=== PATIENT | female | born 1950 | race Two or more races ===

== ENCOUNTER 2023-12-14 04:33 | Day surgery (SDC) | payer OTHER ==
[2023-12-09 10:16] VITALS: BMI 30.3
[2023-12-14 08:51] LABS: BASO % 0.1 % (0-2.0); HEMATOCRIT 37.5 % (32.4-45.2); MCH 25.5 pg (25.7-33.7); MEAN CELL VOLUME 79.5 fl (80-96); MEAN PLT VOLUME 8.6 fl (7.5-11.1); MONO % 6.8 % (3.8-10.2); NEUT % 81.1 % (42.8-82.8); PLATELET COUNT 391 10^3/uL (134-434); RBC 4.72 M/mm3 (3.60-5.2); RDW 14.1 % (11.6-15.6); WHITE BLOOD COUNT 15.6 K/mm3 (4.0-10.0)
[2023-12-14 09:01] LABS: POTASSIUM 4.3 mmol/L (3.5-5.1)
[2023-12-14 09:03] LABS: CALCIUM 9.6 mg/dL (8.5-10.1)
[2023-12-14 09:04] LABS: ALBUMIN 3.8 g/dl (3.4-5.0); BLOOD UREA NITROGEN 13.8 mg/dL (7-18)
[2023-12-14 09:07] LABS: BILIRUBIN,DIRECT 0.1 mg/dL (0.0-0.2); CREATININE 0.8 mg/dL (0.55-1.3)
[2023-12-14 09:08] LABS: BILIRUBIN,TOTAL 0.4 mg/dL (0.2-1)
[2023-12-14 09:09] LABS: TOT PROT 7.8 g/dl (6.4-8.2)
[2023-12-14 09:17] LABS: INR 1.04 (0.83-1.09); PROTHROMBIN TIME (PATIENT) 12.1 SEC (9.7-13.0)
[2023-12-14] MEDS ORDERED: MIDAZOLAM HCL 2 MG/2 ML SINGLE DOSE VIAL ONE (10:08)
[2023-12-14] MEDS ORDERED: FENTANYL CITRATE/PF 50 MCG/ML VIAL ONE (10:09)
[2023-12-14] MEDS: SODIUM CHLORIDE 500 ML IV SCH (10:20)
[2023-12-14] MEDS: FENTANYL CITRATE/PF 50 MCG/ML VIAL IVPUSH ONE (10:23)
[2023-12-14] MEDS: MIDAZOLAM HCL 2 MG/2 ML SINGLE DOSE VIAL IVPUSH ONE (10:23)
[2023-12-14] MEDS: FOSAPREPITANT DIMEGLUMINE 150 MG in SODIUM CHLORIDE 145 ML IVPB ONE (12:53)
[2023-12-14] MEDS: DEXAMETHASONE SODIUM PHOSPHATE 10 MG in SODIUM CHLORIDE 50 ML IVPB ONE (13:26)
[2023-12-14] MEDS: PALONOSETRON HCL 0.25 MG/5 ML VIAL IVPUSH ONE (13:26)
[2023-12-14] MEDS: PERTUZUMAB 840 MG in SODIUM CHLORIDE 250 ML IVPB ONE (14:03)
[2023-12-14] MEDS: TRASTUZUMAB-ANNS 520 MG in SODIUM CHLORIDE 250 ML IVPB ONE (15:15)
[2023-12-14] MEDS: DOCETAXEL IV ONE (16:56)
[2023-12-14] MEDS: SODIUM CHLORIDE IV ONE (16:56)
[2023-12-14 18:15] VITALS: RESP 20; TEMP 98.8
[2023-12-14] MEDS: PORTA CATH FLUSH 10 ML IVPUSH PRN (18:15)
[2023-12-14 18:23] VITALS: BP 141/75; PULSE 75
== END 2023-12-14 18:31 | disposition home or self-care (01) ==
LOC: JRADIR 04:33 → J7W 12:00 → JRADIR 18:31
PROVIDERS: ATTEND Internal Medicine Hematology & Oncology
PROC: 3E04305 Introduction of Other Antineoplastic into Central Vein, Percutaneous Approach (ICD-10-PCS; principal; 2023-12-14)
PROC: 0JH63WZ Insertion of Totally Implantable Vascular Access Device into Chest Subcutaneous Tissue and Fascia, Percutaneous Approach (ICD-10-PCS; 2023-12-14)
DX: Z51.11 Encounter for antineoplastic chemotherapy (principal); C50.919 Malignant neoplasm of unspecified site of unspecified female breast
CPT/HCPCS: 36561; 96367; 96375; 96413; 96417; C1788; 36415; 77001-TC-FY; 80048; 80076; 84703; 85025; 85610; J1453; J2469; J9306; Q5117

== ENCOUNTER 2023-12-15 17:45 | Day surgery (SDC) | payer OTHER ==
[2023-12-15] MEDS: PEGFILGRASTIM-CBQV (UDENYCA) 6 MG/0.6 ML SYRINGE SQ ONE (17:53)
[2023-12-15 18:16] VITALS: BP 150/70; PULSE 67; RESP 20; TEMP 98
== END 2023-12-15 18:00 | disposition home or self-care (01) ==
LOC: JONCCHEMO 17:45 → J7W 17:45 → JONCCHEMO 18:00
PROVIDERS: ATTEND Internal Medicine Hematology & Oncology
PROC: 3E013GC Introduction of Other Therapeutic Substance into Subcutaneous Tissue, Percutaneous Approach (ICD-10-PCS; principal; 2023-12-15)
DX: C50.919 Malignant neoplasm of unspecified site of unspecified female breast (principal); Z76.89 Persons encountering health services in other specified circumstances
CPT/HCPCS: 96374; Q5111

== ENCOUNTER 2024-01-04 07:36 | Day surgery (SDC) | payer OTHER ==
[2024-01-04 08:26] LABS: POTASSIUM 3.7 mmol/L (3.5-5.1)
[2024-01-04 08:28] LABS: ALBUMIN 3.5 g/dl (3.4-5.0); CALCIUM 8.5 mg/dL (8.5-10.1)
[2024-01-04 08:31] LABS: BILIRUBIN,DIRECT 0.1 mg/dL (0.0-0.2); CREATININE 0.9 mg/dL (0.55-1.3)
[2024-01-04 08:33] LABS: BILIRUBIN,TOTAL 0.4 mg/dL (0.2-1); TOT PROT 7.3 g/dl (6.4-8.2)
[2024-01-04 08:36] LABS: BASO % 0.4 % (0-2.0); HEMATOCRIT 31.2 % (32.4-45.2); HEMOGLOBIN 10.3 GM/dL (10.7-15.3); LYMPH % 9.9 % (8-40); MCH 25.6 pg (25.7-33.7); MCHC 32.9 g/dl (32.0-36.0); MEAN CELL VOLUME 77.9 fl (80-96); MEAN PLT VOLUME 8.1 fl (7.5-11.1); NEUT % 84.7 % (42.8-82.8); PLATELET COUNT 566 10^3/uL (134-434); RBC 4.01 M/mm3 (3.60-5.2); WHITE BLOOD COUNT 16.1 K/mm3 (4.0-10.0)
[2024-01-04] MEDS: FOSAPREPITANT DIMEGLUMINE 150 MG in SODIUM CHLORIDE 145 ML IVPB ONE (09:58)
[2024-01-04] MEDS: PALONOSETRON HCL 0.25 MG/5 ML VIAL IVPUSH ONE (11:07)
[2024-01-04] MEDS: DEXAMETHASONE SODIUM PHOSPHATE 10 MG in SODIUM CHLORIDE 50 ML IVPB ONE (11:07)
[2024-01-04] MEDS: PERTUZUMAB 420 MG in SODIUM CHLORIDE 250 ML IVPB ONE (11:25)
[2024-01-04] MEDS: SODIUM CHLORIDE IVPB ONE (12:13)
[2024-01-04] MEDS: TRASTUZUMAB ANNS IVPB ONE (12:13)
[2024-01-04] MEDS: DOCETAXEL IV ONE (12:51)
[2024-01-04] MEDS: SODIUM CHLORIDE IV ONE (12:51)
[2024-01-04] MEDS: PORTA CATH FLUSH 10 ML IVPUSH PRN (13:52)
[2024-01-04 15:53] VITALS: BP 139/79; PULSE 74; RESP 20; TEMP 97.9
== END 2024-01-04 14:15 | disposition home or self-care (01) ==
LOC: JONCCHEMO 07:36 → J7W 07:37 → JONCCHEMO 14:15
PROVIDERS: ATTEND Internal Medicine Hematology & Oncology
PROC: 3E013GC Introduction of Other Therapeutic Substance into Subcutaneous Tissue, Percutaneous Approach (ICD-10-PCS; principal; 2024-01-04)
DX: C50.919 Malignant neoplasm of unspecified site of unspecified female breast (principal); Z76.89 Persons encountering health services in other specified circumstances
CPT/HCPCS: 36415; 80048; 80076; 85025; 96372; J1453; J2469; J9306; Q5117

== ENCOUNTER 2024-01-05 13:15 | Day surgery (SDC) | payer OTHER ==
[2024-01-05] MEDS: PEGFILGRASTIM-CBQV (UDENYCA) 6 MG/0.6 ML SYRINGE SQ ONE (13:38)
[2024-01-05 17:16] VITALS: BP 140/74; PULSE 68; RESP 20; TEMP 97.8
== END 2024-01-05 13:40 | disposition home or self-care (01) ==
LOC: JONCCHEMO 13:15 → J7W 13:15 → JONCCHEMO 13:40
PROVIDERS: ATTEND Internal Medicine Hematology & Oncology
DX: C50.412 Malignant neoplasm of upper-outer quadrant of left female breast (principal); Z17.0 Estrogen receptor positive status [ER+]; C77.3 Secondary and unspecified malignant neoplasm of axilla and upper limb lymph nodes; Z76.89 Persons encountering health services in other specified circumstances
CPT/HCPCS: 96372; Q5111

== ENCOUNTER 2024-01-25 08:08 | Day surgery (SDC) | payer OTHER ==
[2024-01-25 09:17] LABS: BASO % 0.4 % (0-2.0); HEMATOCRIT 30.3 % (32.4-45.2); HEMOGLOBIN 9.8 GM/dL (10.7-15.3); LYMPH % 9.3 % (8-40); MCH 25.4 pg (25.7-33.7); MCHC 32.3 g/dl (32.0-36.0); MEAN CELL VOLUME 78.6 fl (80-96); MEAN PLT VOLUME 8.1 fl (7.5-11.1); MONO % 3.1 % (3.8-10.2); NEUT % 87.2 % (42.8-82.8); PLATELET COUNT 390 10^3/uL (134-434); RBC 3.85 M/mm3 (3.60-5.2); RDW 15.9 % (11.6-15.6)
[2024-01-25 09:43] LABS: POTASSIUM 3.7 mmol/L (3.5-5.1)
[2024-01-25 09:47] LABS: CALCIUM 8.5 mg/dL (8.5-10.1)
[2024-01-25 09:48] LABS: ALBUMIN 3.6 g/dl (3.4-5.0); BLOOD UREA NITROGEN 12.4 mg/dL (7-18)
[2024-01-25 09:50] LABS: BILIRUBIN,DIRECT 0.1 mg/dL (0.0-0.2)
[2024-01-25 09:51] LABS: CREATININE 0.9 mg/dL (0.55-1.3)
[2024-01-25 09:52] LABS: BILIRUBIN,TOTAL 0.4 mg/dL (0.2-1)
[2024-01-25] MEDS: FOSAPREPITANT DIMEGLUMINE 150 MG in SODIUM CHLORIDE 145 ML IVPB ONE (10:11)
[2024-01-25] MEDS: PALONOSETRON HCL 0.25 MG/5 ML VIAL IVPUSH ONE (10:48)
[2024-01-25] MEDS: DEXAMETHASONE SODIUM PHOSPHATE 10 MG in SODIUM CHLORIDE 50 ML IVPB ONE (11:05)
[2024-01-25] MEDS: DOCETAXEL IV ONE (11:33)
[2024-01-25] MEDS: SODIUM CHLORIDE IV ONE (11:33)
[2024-01-25] MEDS: PERTUZUMAB 420 MG in SODIUM CHLORIDE 250 ML IVPB ONE (11:44)
[2024-01-25] MEDS: SODIUM CHLORIDE IVPB ONE (12:24)
[2024-01-25] MEDS: TRASTUZUMAB ANNS IVPB ONE (12:24)
[2024-01-25 16:11] VITALS: BP 153/79; PULSE 82; RESP 20; TEMP 98.3
[2024-01-25] MEDS ORDERED: PORTA CATH FLUSH 10 ML IVPUSH PRN (16:11)
== END 2024-01-25 14:25 | disposition home or self-care (01) ==
LOC: JONCCHEMO 08:08 → J7W 08:08 → JONCCHEMO 14:25
PROVIDERS: ATTEND Internal Medicine Hematology & Oncology
DX: Z51.11 Encounter for antineoplastic chemotherapy (principal); C50.412 Malignant neoplasm of upper-outer quadrant of left female breast; C77.3 Secondary and unspecified malignant neoplasm of axilla and upper limb lymph nodes; Z17.0 Estrogen receptor positive status [ER+]
CPT/HCPCS: 36415; 80048; 80076; 85025; 96367; 96375; 96413; 96417; J1453; J2469; J9306; Q5117

== ENCOUNTER 2024-01-26 14:00 | Day surgery (SDC) | payer OTHER ==
[2024-01-26] MEDS: PEGFILGRASTIM-CBQV (UDENYCA) 6 MG/0.6 ML SYRINGE SQ ONE (14:44)
[2024-01-26 18:56] VITALS: BP 133/68; PULSE 77; RESP 18; TEMP 97.9
== END 2024-01-26 15:00 | disposition home or self-care (01) ==
LOC: JONCCHEMO 14:00 → J7W 14:47 → JONCCHEMO 15:00
PROVIDERS: ATTEND Internal Medicine Hematology & Oncology
PROC: 3E013GC Introduction of Other Therapeutic Substance into Subcutaneous Tissue, Percutaneous Approach (ICD-10-PCS; principal; 2024-01-26)
DX: C50.412 Malignant neoplasm of upper-outer quadrant of left female breast (principal); C77.3 Secondary and unspecified malignant neoplasm of axilla and upper limb lymph nodes; Z76.89 Persons encountering health services in other specified circumstances
CPT/HCPCS: 96372; Q5111

== ENCOUNTER 2024-02-15 09:11 | Day surgery (SDC) | payer OTHER ==
[2024-02-15 09:34] LABS: BASO % 0.1 % (0-2.0); HEMATOCRIT 29.8 % (32.4-45.2); HEMOGLOBIN 9.8 GM/dL (10.7-15.3); LYMPH % 8.3 % (8-40); MCH 25.9 pg (25.7-33.7); MEAN CELL VOLUME 78.4 fl (80-96); MEAN PLT VOLUME 7.4 fl (7.5-11.1); MONO % 4.2 % (3.8-10.2); NEUT % 87.4 % (42.8-82.8); PLATELET COUNT 431 10^3/uL (134-434); RBC 3.79 M/mm3 (3.60-5.2); RDW 17.5 % (11.6-15.6); WHITE BLOOD COUNT 13.6 K/mm3 (4.0-10.0)
[2024-02-15 09:48] LABS: POTASSIUM 3.8 mmol/L (3.5-5.1)
[2024-02-15 09:51] LABS: CALCIUM 9.4 mg/dL (8.5-10.1)
[2024-02-15 09:52] LABS: ALBUMIN 3.7 g/dl (3.4-5.0); BLOOD UREA NITROGEN 15.2 mg/dL (7-18)
[2024-02-15 09:54] LABS: BILIRUBIN,DIRECT 0.1 mg/dL (0.0-0.2); CREATININE 0.8 mg/dL (0.55-1.3)
[2024-02-15 09:56] LABS: TOT PROT 7.4 g/dl (6.4-8.2)
[2024-02-15 09:57] LABS: BILIRUBIN,TOTAL 0.3 mg/dL (0.2-1)
[2024-02-15] MEDS: FOSAPREPITANT DIMEGLUMINE 150 MG in SODIUM CHLORIDE 145 ML IVPB ONE (11:06)
[2024-02-15] MEDS: PALONOSETRON HCL 0.25 MG/5 ML VIAL IVPUSH ONE (11:06)
[2024-02-15] MEDS: DEXAMETHASONE SODIUM PHOSPHATE 10 MG in SODIUM CHLORIDE 50 ML IVPB ONE (11:40)
[2024-02-15] MEDS: PERTUZUMAB 420 MG in SODIUM CHLORIDE 250 ML IVPB ONE (11:58)
[2024-02-15] MEDS: TRASTUZUMAB ANNS IVPB ONE (12:58)
[2024-02-15] MEDS: SODIUM CHLORIDE IVPB ONE (12:58)
[2024-02-15] MEDS: SODIUM CHLORIDE IV ONE (13:30)
[2024-02-15] MEDS: DOCETAXEL IV ONE (13:30)
[2024-02-15] MEDS: PORTA CATH FLUSH 10 ML IVPUSH PRN (14:40)
[2024-02-15 14:53] VITALS: PULSE 74; TEMP 98.3
[2024-02-15 15:11] VITALS: BP 152/77; RESP 20
== END 2024-02-15 15:00 | disposition home or self-care (01) ==
LOC: JONCCHEMO 09:11 → J7W 09:11 → JONCCHEMO 15:00
PROVIDERS: ATTEND Internal Medicine Hematology & Oncology
DX: Z51.11 Encounter for antineoplastic chemotherapy (principal); C50.412 Malignant neoplasm of upper-outer quadrant of left female breast; C77.3 Secondary and unspecified malignant neoplasm of axilla and upper limb lymph nodes
CPT/HCPCS: 36415; 80048; 80076; 85025; 96367; 96375; 96413; 96417; J1453; J2469; J9306; Q5117

== ENCOUNTER 2024-02-16 14:50 | Day surgery (SDC) | payer OTHER ==
[2024-02-16] MEDS: PEGFILGRASTIM-CBQV (UDENYCA) 6 MG/0.6 ML SYRINGE SQ ONE (15:08)
[2024-02-16 15:50] VITALS: BP 139/78; PULSE 78; RESP 20; TEMP 98.3
== END 2024-02-16 16:00 | disposition home or self-care (01) ==
LOC: JONCCHEMO 14:50 → J7W 14:52 → JONCCHEMO 16:22
PROVIDERS: ATTEND Internal Medicine Hematology & Oncology
PROC: 3E013GC Introduction of Other Therapeutic Substance into Subcutaneous Tissue, Percutaneous Approach (ICD-10-PCS; principal; 2024-02-16)
DX: C50.412 Malignant neoplasm of upper-outer quadrant of left female breast (principal); C77.3 Secondary and unspecified malignant neoplasm of axilla and upper limb lymph nodes; Z76.89 Persons encountering health services in other specified circumstances
CPT/HCPCS: 96372; Q5111

== ENCOUNTER 2024-03-07 08:36 | Day surgery (SDC) | payer OTHER ==
[2024-03-07 09:17] LABS: HEMATOCRIT 29.3 % (32.4-45.2); HEMOGLOBIN 9.7 GM/dL (10.7-15.3); MCH 26.8 pg (25.7-33.7); MCHC 33.2 g/dl (32.0-36.0); MEAN CELL VOLUME 80.8 fl (80-96); PLATELET COUNT 366 10^3/uL (134-434); RBC 3.62 M/mm3 (3.60-5.2); RDW 17.9 % (11.6-15.6); WHITE BLOOD COUNT 12.5 K/mm3 (4.0-10.0)
[2024-03-07 09:54] LABS: POTASSIUM 3.6 mmol/L (3.5-5.1)
[2024-03-07 09:56] LABS: CALCIUM 9.3 mg/dL (8.5-10.1)
[2024-03-07 09:57] LABS: ALBUMIN 3.9 g/dl (3.4-5.0); BLOOD UREA NITROGEN 14.6 mg/dL (7-18)
[2024-03-07 10:00] LABS: BILIRUBIN,DIRECT 0.1 mg/dL (0.0-0.2)
[2024-03-07 10:02] LABS: BILIRUBIN,TOTAL 0.4 mg/dL (0.2-1); TOT PROT 7.4 g/dl (6.4-8.2)
[2024-03-07 10:17] LABS: ANISOCYTOSIS 1+; MACROCYTOSIS 0
[2024-03-07] MEDS: FOSAPREPITANT DIMEGLUMINE 150 MG in SODIUM CHLORIDE 145 ML IVPB ONE (10:56)
[2024-03-07] MEDS: PORTA CATH FLUSH 10 ML IVPUSH PRN (11:15)
[2024-03-07] MEDS: PALONOSETRON HCL 0.25 MG/5 ML VIAL IVPUSH ONE (11:15)
[2024-03-07] MEDS: DEXAMETHASONE SODIUM PHOSPHATE 10 MG in SODIUM CHLORIDE 50 ML IVPB ONE (11:23)
[2024-03-07] MEDS: PERTUZUMAB 420 MG in SODIUM CHLORIDE 250 ML IVPB ONE (12:19)
[2024-03-07] MEDS: TRASTUZUMAB ANNS IVPB ONE (12:59)
[2024-03-07] MEDS: SODIUM CHLORIDE IVPB ONE (12:59)
[2024-03-07] MEDS: SODIUM CHLORIDE IV ONE (14:06)
[2024-03-07] MEDS: DOCETAXEL IV ONE (14:06)
[2024-03-07 15:40] VITALS: RESP 20; TEMP 98
[2024-03-08 07:07] VITALS: BP 143/70; PULSE 69
== END 2024-03-07 15:35 | disposition home or self-care (01) ==
LOC: JONCCHEMO 08:36 → J7W 08:37 → JONCCHEMO 15:35
PROVIDERS: ATTEND Internal Medicine Hematology & Oncology
DX: Z51.11 Encounter for antineoplastic chemotherapy (principal); C50.412 Malignant neoplasm of upper-outer quadrant of left female breast; C77.3 Secondary and unspecified malignant neoplasm of axilla and upper limb lymph nodes
CPT/HCPCS: 36415; 80048; 80076; 82607; 82728; 82746; 83540; 83550; 85025; J1453; J2469; J9306; Q5117

== ENCOUNTER 2024-03-08 14:28 | Day surgery (SDC) | payer OTHER ==
[2024-03-08] MEDS: PEGFILGRASTIM-CBQV (UDENYCA) 6 MG/0.6 ML SYRINGE SQ ONE (14:31)
[2024-03-08 15:11] VITALS: BP 135/70; PULSE 75; RESP 20; TEMP 98.7
== END 2024-03-08 15:00 | disposition home or self-care (01) ==
LOC: JONCCHEMO 14:28 → J7W 14:28 → JONCCHEMO 15:00
PROVIDERS: ATTEND Internal Medicine Hematology & Oncology
PROC: 3E013GC Introduction of Other Therapeutic Substance into Subcutaneous Tissue, Percutaneous Approach (ICD-10-PCS; principal; 2024-03-08)
DX: Z76.89 Persons encountering health services in other specified circumstances (principal); C50.412 Malignant neoplasm of upper-outer quadrant of left female breast; C77.3 Secondary and unspecified malignant neoplasm of axilla and upper limb lymph nodes
CPT/HCPCS: Q5111

== ENCOUNTER 2024-03-28 09:33 | Day surgery (SDC) | payer OTHER ==
[2024-03-28 09:57] VITALS: BP 146/77; PULSE 69; RESP 20; TEMP 98.2
[2024-03-28 09:57] LABS: HEMATOCRIT 30.5 % (32.4-45.2); HEMOGLOBIN 9.9 GM/dL (10.7-15.3); LYMPH % 16.7 % (8-40); MCH 26.8 pg (25.7-33.7); MCHC 32.6 g/dl (32.0-36.0); MEAN CELL VOLUME 82.4 fl (80-96); MEAN PLT VOLUME 7.7 fl (7.5-11.1); MONO % 7.3 % (3.8-10.2); PLATELET COUNT 402 10^3/uL (134-434); RDW 17.3 % (11.6-15.6)
[2024-03-28 10:20] LABS: POTASSIUM 3.9 mmol/L (3.5-5.1)
[2024-03-28 10:22] LABS: BLOOD UREA NITROGEN 15.7 mg/dL (7-18); CALCIUM 9.5 mg/dL (8.5-10.1)
[2024-03-28 10:23] LABS: ALBUMIN 4.1 g/dl (3.4-5.0)
[2024-03-28 10:26] LABS: BILIRUBIN,DIRECT 0.1 mg/dL (0.0-0.2); CREATININE 0.8 mg/dL (0.55-1.3)
[2024-03-28 10:27] LABS: BILIRUBIN,TOTAL 0.8 mg/dL (0.2-1); TOT PROT 7.2 g/dl (6.4-8.2)
[2024-03-28] MEDS: FOSAPREPITANT DIMEGLUMINE 150 MG in SODIUM CHLORIDE 145 ML IVPB ONE (11:20)
[2024-03-28] MEDS: PALONOSETRON HCL 0.25 MG/5 ML VIAL IVPUSH ONE (11:58)
[2024-03-28] MEDS: DEXAMETHASONE SODIUM PHOSPHATE 10 MG in SODIUM CHLORIDE 50 ML IVPB ONE (12:00)
[2024-03-28] MEDS: PERTUZUMAB 420 MG in SODIUM CHLORIDE 250 ML IVPB ONE (12:21)
[2024-03-28] MEDS: TRASTUZUMAB QYYP IVPB ONE (12:57)
[2024-03-28] MEDS: SODIUM CHLORIDE IVPB ONE (12:57)
[2024-03-28] MEDS: SODIUM CHLORIDE IV ONE (13:34)
[2024-03-28] MEDS: DOCETAXEL IV ONE (13:34)
[2024-03-28] MEDS: PORTA CATH FLUSH 10 ML IVPUSH PRN (13:36)
== END 2024-03-28 14:40 | disposition home or self-care (01) ==
LOC: J7W 09:33 → JONCCHEMO 09:33
PROVIDERS: ATTEND Internal Medicine Hematology & Oncology
DX: Z51.11 Encounter for antineoplastic chemotherapy (principal); C50.412 Malignant neoplasm of upper-outer quadrant of left female breast; C77.3 Secondary and unspecified malignant neoplasm of axilla and upper limb lymph nodes
CPT/HCPCS: 36415; 80048; 80076; 85025; 96367; 96375; 96413; 96417; J1453; J2469; J9306; Q5116

== ENCOUNTER 2024-03-29 12:35 | Day surgery (SDC) | payer OTHER ==
[2024-03-29] MEDS: PEGFILGRASTIM-CBQV (UDENYCA) 6 MG/0.6 ML SYRINGE SQ ONE (12:43)
[2024-03-29 15:26] VITALS: BP 151/71; PULSE 69; RESP 20; TEMP 98.1
== END 2024-03-29 13:00 | disposition home or self-care (01) ==
LOC: JONCCHEMO 12:35 → J7W 12:35 → JONCCHEMO 13:00
PROVIDERS: ATTEND Internal Medicine Hematology & Oncology
PROC: 3E013GC Introduction of Other Therapeutic Substance into Subcutaneous Tissue, Percutaneous Approach (ICD-10-PCS; principal; 2024-03-29)
DX: C50.412 Malignant neoplasm of upper-outer quadrant of left female breast (principal); C77.3 Secondary and unspecified malignant neoplasm of axilla and upper limb lymph nodes; Z76.89 Persons encountering health services in other specified circumstances
CPT/HCPCS: 96372; Q5111

== ENCOUNTER → 2024-04-20 | Day surgery (SDC) | payer OTHER | END | disposition home or self-care (01) | LOC: JRADUS-SUR 08:22 | PROVIDERS: ATTEND Surgery Surgical Oncology | PROC: BH41ZZZ Ultrasonography of Left Breast (ICD-10-PCS; principal; 2024-04-20) | DX: C50.919 Malignant neoplasm of unspecified site of unspecified female breast (principal) | CPT/HCPCS: 19285; 19286; A4648; 19281; 77065-TC ==

== ENCOUNTER 2024-04-27 04:27 | Day surgery (SDC) | payer OTHER ==
[2024-04-19 13:06] VITALS: BMI 33.0
[2024-04-27] MEDS ORDERED: ACETAMINOPHEN 325 MG TABLET (FP) ONE (10:27)
[2024-04-27] MEDS: ACETAMINOPHEN 325 MG TABLET (FP) PO ONE (10:45)
[2024-04-27] MEDS ORDERED: BUPIVACAINE HCL/PF 0.5% (5MG/ML) 10 ML VIAL ONE (11:03)
[2024-04-27] MEDS ORDERED: LIDOCAINE 1%/EPI 1:100000 (20 ML MULTI DOSE VIAL) ONE (11:03)
[2024-04-27] MEDS ORDERED: ISOSULFAN BLUE 50 MG/5 ML VIAL SQ ONE (11:03)
[2024-04-27] MEDS ORDERED: BENZOIN/ALOE VERA/STORAX/TOLU 58 ML BOTTLE ONE (11:03)
[2024-04-27] MEDS ORDERED: MIDAZOLAM HCL 2 MG/2 ML SINGLE DOSE VIAL ONE (12:46)
[2024-04-27] MEDS ORDERED: PROPOFOL 20 ML ONE (12:46)
[2024-04-27] MEDS ORDERED: LIDOCAINE HCL/PF 2% SDV 5ML VIAL ONE (12:46)
[2024-04-27] MEDS ORDERED: DEXAMETHASONE SOD PHOSPHATE 4 MG/1 ML VIAL ONE (13:00)
[2024-04-27] MEDS: ceFAZolin SODIUM 1 GM VIAL IVPB ONE (13:00)
[2024-04-27] MEDS: BUPIVACAINE HCL/PF 0.5% (5 MG/ML) 30 ML VIAL IJ ONE (13:35)
[2024-04-27] MEDS ORDERED: KETOROLAC TROMETHAMINE 30 MG/1 ML VIAL ONE (13:40)
[2024-04-27] MEDS ORDERED: ONDANSETRON 4 MG/2 ML VIAL ONE (13:40)
[2024-04-27] MEDS ORDERED: oxyCODONE HCL 5 MG TABLET PO PRN (14:08)
[2024-04-27] MEDS ORDERED: ONDANSETRON 4 MG/2 ML VIAL IVPUSH PRN (14:08)
[2024-04-27] MEDS ORDERED: LACTATED RINGERS SOLUTION 1,000 ML IV SCH (14:15)
[2024-04-27 14:46] VITALS: TEMP 97.8
[2024-04-27 16:16] VITALS: BP 143/73; PULSE 77; RESP 18
[2024-04-27] MEDS ORDERED: ACETAMINOPHEN 325 MG TABLET (FP) PO ONE (16:45)
== END 2024-04-27 16:05 | disposition home or self-care (01) ==
LOC: JASU-SURG 04:27
PROVIDERS: ATTEND Surgery Surgical Oncology
PROC: C71L1ZZ Planar Nuclear Medicine Imaging of Upper Chest Lymphatics using Technetium 99m (Tc-99m) (ICD-10-PCS; 2024-04-27)
PROC: 0HBU0ZZ Excision of Left Breast, Open Approach (ICD-10-PCS; principal; 2024-04-27 12:00)
PROC: 07B60ZX Excision of Left Axillary Lymphatic, Open Approach, Diagnostic (ICD-10-PCS; 2024-04-27 12:00)
DX: C50.912 Malignant neoplasm of unspecified site of left female breast (principal); C77.3 Secondary and unspecified malignant neoplasm of axilla and upper limb lymph nodes
CPT/HCPCS: 76098-TC-FY; 78195-TC; 88307-TC; 88342-TC; 94760; A9541

== ENCOUNTER 2024-05-23 11:05 | Day surgery (SDC) | payer OTHER ==
[2024-05-23 11:58] VITALS: RESP 20; TEMP 97.7
[2024-05-23 12:58] LABS: BASO % 0.4 % (0-2.0); EOS % 1.6 % (0-4.5); HEMATOCRIT 31.2 % (32.4-45.2); HEMOGLOBIN 10.4 GM/dL (10.7-15.3); LYMPH % 24.7 % (8-40); MCH 27.1 pg (25.7-33.7); MCHC 33.2 g/dl (32.0-36.0); MEAN CELL VOLUME 81.7 fl (80-96); MEAN PLT VOLUME 8.5 fl (7.5-11.1); MONO % 6.9 % (3.8-10.2); NEUT % 66.4 % (42.8-82.8); PLATELET COUNT 309 10^3/uL (134-434); RBC 3.82 M/mm3 (3.60-5.2); RDW 13.8 % (11.6-15.6); WHITE BLOOD COUNT 7.9 K/mm3 (4.0-10.0)
[2024-05-23 13:09] LABS: CHLORIDE 106 mmol/L (98-107); SODIUM 139 mmol/L (136-145)
[2024-05-23 13:11] LABS: ALBUMIN 3.8 g/dl (3.4-5.0); ANION GAP 7 mmol/L (4-13); BLOOD UREA NITROGEN 21.8 mg/dL (7-18); CALCIUM 9.3 mg/dL (8.5-10.1); CO2 26 mmol/L (21-32)
[2024-05-23 13:12] LABS: GLUCOSE,RANDOM 103 mg/dL (74-106)
[2024-05-23 13:13] LABS: BILIRUBIN,DIRECT 0.1 mg/dL (0.0-0.2)
[2024-05-23 13:15] LABS: BILIRUBIN,TOTAL 0.3 mg/dL (0.2-1); CREATININE 0.9 mg/dL (0.55-1.3); TOT PROT 7.1 g/dl (6.4-8.2)
[2024-05-23] MEDS: SODIUM CHLORIDE IVPB ONE (13:55)
[2024-05-23] MEDS: ADO TRASTUZUMAB EMTANSINE IVPB ONE (13:55)
[2024-05-23] MEDS: PORTA CATH FLUSH 10 ML IVPUSH PRN (14:30)
[2024-05-23 15:48] VITALS: BP 153/74; PULSE 72
== END 2024-05-23 14:45 | disposition home or self-care (01) ==
LOC: JONCCHEMO 11:05 → J7W 11:06 → JONCCHEMO 14:45
PROVIDERS: ATTEND Internal Medicine Hematology & Oncology
DX: Z51.11 Encounter for antineoplastic chemotherapy (principal); C50.412 Malignant neoplasm of upper-outer quadrant of left female breast; C77.3 Secondary and unspecified malignant neoplasm of axilla and upper limb lymph nodes; Z17.0 Estrogen receptor positive status [ER+]
CPT/HCPCS: 36415; 80048; 80076; 84703; 85025; 96413; J9354

== ENCOUNTER 2024-06-13 10:52 | Day surgery (SDC) | payer OTHER ==
[2024-06-13 11:26] LABS: BASO % 0.6 % (0-2.0); EOS % 0.7 % (0-4.5); HEMATOCRIT 34.2 % (32.4-45.2); HEMOGLOBIN 10.9 GM/dL (10.7-15.3); LYMPH % 19.4 % (8-40); MCH 25.3 pg (25.7-33.7); MCHC 31.9 g/dl (32.0-36.0); MEAN CELL VOLUME 79.3 fl (80-96); MEAN PLT VOLUME 7.8 fl (7.5-11.1); MONO % 7.4 % (3.8-10.2); NEUT % 71.9 % (42.8-82.8); PLATELET COUNT 377 10^3/uL (134-434); RBC 4.32 M/mm3 (3.60-5.2); RDW 13.9 % (11.6-15.6); WHITE BLOOD COUNT 8.3 K/mm3 (4.0-10.0)
[2024-06-13 12:00] LABS: CHLORIDE 105 mmol/L (98-107); POTASSIUM 4.1 mmol/L (3.5-5.1); SODIUM 141 mmol/L (136-145)
[2024-06-13 12:02] LABS: ALBUMIN 3.8 g/dl (3.4-5.0); ANION GAP 7 mmol/L (4-13); CALCIUM 9.3 mg/dL (8.5-10.1); CO2 29 mmol/L (21-32)
[2024-06-13 12:03] LABS: BLOOD UREA NITROGEN 21.2 mg/dL (7-18); GLUCOSE,RANDOM 99 mg/dL (74-106)
[2024-06-13 12:05] LABS: BILIRUBIN,DIRECT 0.1 mg/dL (0.0-0.2); SGOT/AST 33 U/L (15-37); SGPT/ALT 57 U/L (13-61)
[2024-06-13 12:07] LABS: BILIRUBIN,TOTAL 0.3 mg/dL (0.2-1); TOT PROT 7.5 g/dl (6.4-8.2)
[2024-06-13 12:08] LABS: ALK PHOS 99 U/L (45-117)
[2024-06-13] MEDS: SODIUM CHLORIDE IVPB ONE (12:49)
[2024-06-13] MEDS: ADO TRASTUZUMAB EMTANSINE IVPB ONE (12:49)
[2024-06-13] MEDS: PORTA CATH FLUSH 10 ML IVPUSH PRN (13:20)
[2024-06-13 17:31] VITALS: TEMP 98.3
[2024-06-13 17:35] VITALS: BP 159/80; PULSE 79; RESP 18
== END 2024-06-13 13:30 | disposition home or self-care (01) ==
LOC: J7W 10:52 → JONCNONCHE 10:52
PROVIDERS: ATTEND Internal Medicine Hematology & Oncology
DX: Z51.11 Encounter for antineoplastic chemotherapy (principal); C50.412 Malignant neoplasm of upper-outer quadrant of left female breast; C77.3 Secondary and unspecified malignant neoplasm of axilla and upper limb lymph nodes; D50.9 Iron deficiency anemia, unspecified
CPT/HCPCS: 36415; 80048; 80076; 85025; 96413; J9354

== ENCOUNTER 2024-07-04 08:56 | Day surgery (SDC) | payer OTHER ==
[2024-07-04] MEDS: ACETAMINOPHEN 325 MG TABLET (FP) PO ONE (10:00)
[2024-07-04 10:01] LABS: BASO % 0.6 % (0-2.0); EOS % 1.5 % (0-4.5); HEMATOCRIT 35.4 % (32.4-45.2); HEMOGLOBIN 11.6 GM/dL (10.7-15.3); LYMPH % 17.3 % (8-40); MCH 25.6 pg (25.7-33.7); MCHC 32.8 g/dl (32.0-36.0); MEAN PLT VOLUME 7.9 fl (7.5-11.1); MONO % 10.2 % (3.8-10.2); NEUT % 70.4 % (42.8-82.8); PLATELET COUNT 273 10^3/uL (134-434); RBC 4.54 M/mm3 (3.60-5.2); RDW 14.7 % (11.6-15.6); WHITE BLOOD COUNT 6.5 K/mm3 (4.0-10.0)
[2024-07-04 10:31] LABS: CALCIUM 9.7 mg/dL (8.5-10.1)
[2024-07-04 10:32] LABS: ALBUMIN 3.7 g/dl (3.4-5.0); BLOOD UREA NITROGEN 18.2 mg/dL (7-18)
[2024-07-04 10:35] LABS: BILIRUBIN,DIRECT 0.1 mg/dL (0.0-0.2); CREATININE 0.9 mg/dL (0.55-1.3)
[2024-07-04 10:36] LABS: BILIRUBIN,TOTAL 0.4 mg/dL (0.2-1); TOT PROT 7.4 g/dl (6.4-8.2)
[2024-07-04] MEDS: SODIUM CHLORIDE IVPB ONE (11:03)
[2024-07-04] MEDS: ADO TRASTUZUMAB EMTANSINE IVPB ONE (11:03)
[2024-07-04 16:53] VITALS: BP 111/75; PULSE 82; RESP 18; TEMP 97.7
[2024-07-04] MEDS ORDERED: PORTA CATH FLUSH 10 ML IVPUSH PRN (16:53)
== END 2024-07-04 12:00 | disposition home or self-care (01) ==
LOC: JONCCHEMO 08:56 → J7W 08:57 → JONCCHEMO 12:00
PROVIDERS: ATTEND Internal Medicine Hematology & Oncology
DX: Z51.11 Encounter for antineoplastic chemotherapy (principal); C50.412 Malignant neoplasm of upper-outer quadrant of left female breast; C77.3 Secondary and unspecified malignant neoplasm of axilla and upper limb lymph nodes; D50.9 Iron deficiency anemia, unspecified
CPT/HCPCS: 36415; 80048; 80076; 85025; 96413; J9354

== ENCOUNTER 2024-07-25 09:10 | Day surgery (SDC) | payer OTHER ==
[2024-07-25 09:57] LABS: BASO % 0.7 % (0-2.0); EOS % 1.9 % (0-4.5); HEMATOCRIT 34.8 % (32.4-45.2); LYMPH % 19.2 % (8-40); MCH 24.7 pg (25.7-33.7); MCHC 31.6 g/dl (32.0-36.0); MEAN CELL VOLUME 78.1 fl (80-96); MEAN PLT VOLUME 7.5 fl (7.5-11.1); MONO % 9.9 % (3.8-10.2); NEUT % 68.3 % (42.8-82.8); PLATELET COUNT 322 10^3/uL (134-434); RBC 4.45 M/mm3 (3.60-5.2); RDW 15.3 % (11.6-15.6); WHITE BLOOD COUNT 6.9 K/mm3 (4.0-10.0)
[2024-07-25 10:07] LABS: CHLORIDE 107 mmol/L (98-107); POTASSIUM 4.1 mmol/L (3.5-5.1); SODIUM 141 mmol/L (136-145)
[2024-07-25 10:09] LABS: CALCIUM 9.1 mg/dL (8.5-10.1)
[2024-07-25 10:10] LABS: ALBUMIN 3.6 g/dl (3.4-5.0); ANION GAP 5 mmol/L (4-13); CO2 29 mmol/L (21-32); GLUCOSE,RANDOM 80 mg/dL (74-106)
[2024-07-25 10:13] LABS: BILIRUBIN,DIRECT 0.1 mg/dL (0.0-0.2); SGOT/AST 35 U/L (15-37); SGPT/ALT 47 U/L (13-61)
[2024-07-25 10:15] LABS: BILIRUBIN,TOTAL 0.3 mg/dL (0.2-1); TOT PROT 7.4 g/dl (6.4-8.2)
[2024-07-25 10:16] LABS: ALK PHOS 93 U/L (45-117)
[2024-07-25] MEDS: ACETAMINOPHEN 325 MG TABLET (FP) PO ONE (10:59)
[2024-07-25] MEDS: ADO TRASTUZUMAB EMTANSINE IVPB ONE (11:28)
[2024-07-25] MEDS: SODIUM CHLORIDE IVPB ONE (11:28)
[2024-07-25 15:56] VITALS: BP 131/64; PULSE 83; RESP 20; TEMP 98.3
[2024-07-25] MEDS ORDERED: PORTA CATH FLUSH 10 ML IVPUSH PRN (15:56)
== END 2024-07-25 12:30 | disposition home or self-care (01) ==
LOC: J7W 09:10 → JONCCHEMO 09:10
PROVIDERS: ATTEND Internal Medicine Hematology & Oncology
DX: Z51.11 Encounter for antineoplastic chemotherapy (principal); C50.912 Malignant neoplasm of unspecified site of left female breast
CPT/HCPCS: 36415; 80048; 80076; 85025; 96365; J9354